=== PATIENT | male | born 1975 | race African-American/Black ===

== ENCOUNTER 2017-01-05 10:03 | Emergency (ER) | payer MEDICAID ==
[~2017-01-05] VITALS: Ht 176.5 cm; Wt 75.0 kg
[~2017-01-05 10:03] MED LIST: TRAM50TA3 PO
[2017-01-05] MEDS ORDERED: ONDANSETRON HCL 4MG/2ML VIAL IV STA (10:30)
[2017-01-05] MEDS ORDERED: SODIUM CHLORIDE 0.9% 1,000 ML IV ONE (10:30)
[2017-01-05 10:58] LABS: BASOPHILS % 1.1 % (0.0-2.0); DIFFERENTIAL COMMENT 0; EOSINOPHILS % 0.1 % (0.0-5.0); HEMATOCRIT. 40.9 % (42.0-52.0); HEMOGLOBIN. 13.3 g/dL (14.0-18.0); LYMPHOCYTES % 15.1 % (20.0-50.0); MEAN CORPUSCULAR HEMOGLOBIN 30.5 pg (28.0-32.0); MEAN CORPUSCULAR HGB CONC 32.6 g/dL (31.0-37.0); MEAN CORPUSCULAR VOLUME 93.4 fL (80.0-94.0); MEAN PLATELET VOLUME 8.9 fl (7.4-10.4); MONOCYTES % 7.3 % (2.0-8.0); NEUTROPHILS % 76.4 % (40.0-76.0); PLATELET 223 x1000/uL (130-400); RED BLOOD CELL COUNT 4.38 mill/uL (4.7-6.1); WHITE BLOOD COUNT 5.1 x1000/uL (4.5-11.0)
[2017-01-05 11:05] LABS: CHLORIDE 104 mEq/L (98-107); INDEX HEMOLYSI 1 (1-3); INDEX ICTERIC 1 (1-4); INDEX LIPEMIC 1 (1-3)
[2017-01-05 11:07] LABS: INR 1.1; PARTIAL THROMBOPLASTIN TIME 26.1 sec (24.0-34.0); PROTHROMBIN TIME 11.5 sec
[2017-01-05 11:11] LABS: CLARITY URINE CLEAR (CLEAR); COLOR URINE YELLOW (YELLOW); GLUCOSE URINE NEGATIVE (NEGATIVE); KETONES URINE 1+ (NEGATIVE); LEUKOCYTE ESTERASE URINE NEGATIVE (NEGATIVE); NITRITE URINE NEGATIVE (NEGATIVE); OCCULT BLOOD URINE NEGATIVE (NEGATIVE); PH URINE 7.5 (4.5-8.0); PROTEIN URINE TRACE (NEGATIVE)
[2017-01-05 11:16] LABS: ALANINE AMINOTRANSFERASE 29 IU/L (13-61); ALBUMIN 3.7 g/dL (3.4-5.0); ANION GAP 10; CARBON DIOXIDE 32 mEq/L (21-32); ETHANOL BLOOD < 10 mg/dL; LIPASE 178 IU/L (73-393); UREA NITROGEN BLOOD 11 mg/dL (7-21); eGFR > 60 mL/min (>60)
[2017-01-05 11:27] LABS: MUCUS URINE 2+ /lpf (NONE/TRACE); SQUAMOUS EPITHELIAL CELL URINE RARE /lpf (RARE/1+)
[2017-01-05 11:31] LABS: RBC URINE NONE SEEN /hpf (0-2); WBC URINE 0-2 /hpf (0-2)
[2017-01-05 11:32] LABS: BACTERIA URINE TRACE
[2017-01-05 11:34] LABS: *AMPHETAMINES SCREEN URINE NEGATIVE (NEGATIVE); *BARBITURATES SCREEN URINE NEGATIVE (NEGATIVE); *BENZODIAZEPINES SCREEN URINE NEGATIVE (NEGATIVE); *COCAINE SCREEN URINE NEGATIVE (NEGATIVE); CANNABINOID URINE SCREEN PRESUMTIVE POSITIVE (NEGATIVE); ECSTASY MDMA SCREEN URINE NEGATIVE (NEGATIVE); METHADONE URINE SCREEN NEGATIVE (NEGATIVE); OPIATES URINE SCREEN NEGATIVE (NEGATIVE); PHENCYCLIDINE URINE SCREEN PRESUMTIVE POSITIVE (NEGATIVE)
[2017-01-05 12:31] VITALS: BP 153/100
[2017-01-05] MEDS ORDERED: METOCLOPRAMIDE HCL 10MG/2ML VIAL IV ONE (12:45)
== END 2017-01-05 13:20 | disposition home or self-care (01) ==
LOC: ER 10:50
DX: T50.991A Poisoning by other drugs, medicaments and biological substances, accidental (unintentional), initial encounter (principal); F12.120 Cannabis abuse with intoxication, uncomplicated; R11.2 Nausea with vomiting, unspecified; F17.200 Nicotine dependence, unspecified, uncomplicated; F12.10 Cannabis abuse, uncomplicated; F15.10 Other stimulant abuse, uncomplicated; Y93.89 Activity, other specified; Y99.8 Other external cause status; Y92.89 Other specified places as the place of occurrence of the external cause
CPT/HCPCS: 36415; 80053; 80305; 81001; 83690; 85025; 85610; 85730; 93005; 96361; 96374; 96375; 99285; G0482; J2405; J2765; J7030

== ENCOUNTER 2020-07-24 14:15 | Emergency (ER) | payer MEDICAID ==
[~2020-07-24] VITALS: Ht 172.7 cm; Wt 75.0 kg
[2020-07-24] MEDS ORDERED: TETANUS, DIPHTHERIA, PERTUSSIS VAC/PF 0.5ML (>7YR OLD) IM ONE (14:45)
[2020-07-24] MEDS ORDERED: SODIUM CHLORIDE 0.9% 1,000 ML IV ONE (14:45)
[2020-07-24 15:20] LABS: BASOPHILS % 1.2 % (0.0-2.0); HEMATOCRIT. 39.8 % (42.0-52.0); LYMPHOCYTES % 18.2 % (20.0-50.0); MEAN CORPUSCULAR HEMOGLOBIN 29.8 pg (28.0-32.0); MEAN CORPUSCULAR VOLUME 91.1 fL (80.0-94.0); MEAN PLATELET VOLUME 9.5 fl (7.4-10.4); MONOCYTES % 6.1 % (2.0-8.0); NEUTROPHILS % 72.5 % (40.0-76.0); PLATELET 188 x1000/uL (130-400); RED BLOOD CELL COUNT 4.36 mill/uL (4.7-6.1); RED CELL DISTRIBUTION WIDTH 13.2 % (11.6-14.6)
[2020-07-24 15:29] LABS: CHLORIDE 110 mEq/L (98-107)
[2020-07-24 15:31] LABS: PROTHROMBIN TIME 10.9 sec (9.6-11.0)
[2020-07-24] MEDS ORDERED: IOHEXOL-300 100 ML BOTTLE ONE (16:04)
[2020-07-24] MEDS ORDERED: ACETAMINOPHEN 325MG TABLET PO ONE (18:30)
[2020-07-24] MEDS ORDERED: IBUPROFEN 600MG TABLET PO ONE (18:45)
[2020-07-24 19:30] VITALS: BP 132/86
[2020-07-24 19:46] LABS: CLARITY URINE CLEAR (CLEAR); COLOR URINE YELLOW (YELLOW); KETONES URINE NEGATIVE (NEGATIVE); LEUKOCYTE ESTERASE URINE NEGATIVE (NEGATIVE); NITRITE URINE NEGATIVE (NEGATIVE); OCCULT BLOOD URINE NEGATIVE (NEGATIVE); PROTEIN URINE NEGATIVE (NEGATIVE); SPECIFIC GRAVITY URINE 1.041 (1.005-1.030)
== END 2020-07-24 19:36 | disposition home or self-care (01) ==
LOC: ER 14:31
DX: S62.367A Nondisplaced fracture of neck of fifth metacarpal bone, left hand, initial encounter for closed fracture (principal); S00.212A Abrasion of left eyelid and periocular area, initial encounter; S60.512A Abrasion of left hand, initial encounter; M79.10 Myalgia, unspecified site; F19.129 Other psychoactive substance abuse with intoxication, unspecified; F10.10 Alcohol abuse, uncomplicated; F12.10 Cannabis abuse, uncomplicated; F15.10 Other stimulant abuse, uncomplicated; Y90.9 Presence of alcohol in blood, level not specified; V23.4XXA Motorcycle driver injured in collision with car, pick-up truck or van in traffic accident, initial encounter; Y93.89 Activity, other specified; Y92.488 Other paved roadways as the place of occurrence of the external cause
CPT/HCPCS: 29125; 36415; 70450; 71045; 71260; 72125; 72170; 73110; 73130; 73590; 73610; 73630; 74177; 80053; 81003; 83690; 85025; 85610; 85730; 86850; 86900; 86901; 90471; 90715; 93005; 96360; 96361; 99285; J7030; Q9967

== ENCOUNTER 2021-06-01 20:42 | Inpatient (IN) | payer OTHER ==
[~2021-06-01] VITALS: Ht 175.3 cm; Wt 64.0 kg
[2021-06-01] MEDS ORDERED: PANTOPRAZOLE SODIUM 40 MG/VIAL IV STA (20:59)
[2021-06-01] MEDS ORDERED: OCTREOTIDE ACETATE 50 MCG/ML 1ML IV STA (20:59)
[2021-06-01] MEDS ORDERED: OCTREOTIDE 1,000 MCG in SODIUM CHLORIDE 0.9% 100 ML IV STA (20:59)
[2021-06-01] MEDS ORDERED: SODIUM CHLORIDE 0.9% 1,000 ML IV ONE (21:00)
[2021-06-01 21:43] LABS: BASOPHILS % 0.4 % (0.0-2.0); EOSINOPHILS % 0.3 % (0.0-5.0); HEMATOCRIT. 40.2 % (42.0-52.0); HEMOGLOBIN. 13.4 g/dL (14.0-18.0); LYMPHOCYTES % 8.5 % (20.0-50.0); MEAN CORPUSCULAR HEMOGLOBIN 29.5 pg (28.0-32.0); MEAN CORPUSCULAR VOLUME 88.8 fL (80.0-94.0); MEAN PLATELET VOLUME 9.1 fl (7.4-10.4); MONOCYTES % 4.7 % (2.0-8.0); NEUTROPHILS % 86.1 % (40.0-76.0); PLATELET 321 x1000/uL (130-400); RED BLOOD CELL COUNT 4.53 mill/uL (4.7-6.1); RED CELL DISTRIBUTION WIDTH 13.8 % (11.6-14.6)
[2021-06-01 21:46] LABS: CHLORIDE 101 mEq/L (98-107)
[2021-06-01 21:50] LABS: INR 1.1; PARTIAL THROMBOPLASTIN TIME 22.8 sec (23.4-31.0); PROTHROMBIN TIME 11.6 sec (9.6-11.0)
[2021-06-01] MEDS ORDERED: SODIUM CHLORIDE 0.9% 1,000 ML IV NR (23:30)
[2021-06-01] MEDS ORDERED: IOHEXOL-300 100 ML BOTTLE ONE (23:36)
[2021-06-02 03:36] LABS: CLARITY URINE CLEAR (CLEAR); COLOR URINE YELLOW (YELLOW); KETONES URINE TRACE (NEGATIVE); LEUKOCYTE ESTERASE URINE NEGATIVE (NEGATIVE); NITRITE URINE NEGATIVE (NEGATIVE); OCCULT BLOOD URINE NEGATIVE (NEGATIVE); PROTEIN URINE NEGATIVE (NEGATIVE); SPECIFIC GRAVITY URINE 1.051 (1.005-1.030)
[2021-06-02 08:15] VITALS: BP 118/85
[2021-06-02 12:29] VITALS: BP 112/78
[2021-06-02] MEDS ORDERED: ONDANSETRON HCL 4MG/2ML INJ IV PRN (13:00)
[2021-06-02] MEDS ORDERED: ACETAMINOPHEN 325MG TABLET PO PRN (13:00)
[2021-06-02 14:56] LABS: *AMPHETAMINES SCREEN URINE PRESUMTIVE POSITIVE (NEGATIVE); *BARBITURATES SCREEN URINE NEGATIVE (NEGATIVE); *BENZODIAZEPINES SCREEN URINE NEGATIVE (NEGATIVE); CANNABINOID URINE SCREEN PRESUMTIVE POSITIVE (NEGATIVE); METHADONE URINE SCREEN NEGATIVE (NEGATIVE); OPIATES URINE SCREEN NEGATIVE (NEGATIVE); PHENCYCLIDINE URINE SCREEN PRESUMTIVE POSITIVE (NEGATIVE)
[2021-06-02 14:57] LABS: *COCAINE SCREEN URINE NEGATIVE (NEGATIVE)
[2021-06-02 16:00] VITALS: BP 115/71
[2021-06-02] MEDS ORDERED: POTASSIUM CHLORIDE 20MEQ TABLET SR PO NR (16:00)
[2021-06-02] MEDS ORDERED: RISP3TAB62 PO (16:26)
[2021-06-02 20:00] VITALS: BP 100/60
[2021-06-02] MEDS ORDERED: RISPERIDONE 1MG TABLET PO SCH (21:00)
[2021-06-03] VITALS: BP 100/45
[2021-06-03 04:00] VITALS: BP 92/53
[2021-06-03 08:22] VITALS: BP 107/65
[2021-06-03] MEDS ORDERED: PANTOPRAZOLE SODIUM 40 MG/VIAL IV SCH (09:00)
[2021-06-03 10:16] LABS: CHLORIDE 105 mEq/L (98-107)
[2021-06-03 10:19] LABS: BASOPHILS % 1.1 % (0.0-2.0); EOSINOPHILS % 2.5 % (0.0-5.0); HEMATOCRIT. 33.2 % (42.0-52.0); LYMPHOCYTES % 29.2 % (20.0-50.0); MEAN CORPUSCULAR HEMOGLOBIN 29.9 pg (28.0-32.0); MEAN CORPUSCULAR VOLUME 90.2 fL (80.0-94.0); MEAN PLATELET VOLUME 9.1 fl (7.4-10.4); MONOCYTES % 5.9 % (2.0-8.0); NEUTROPHILS % 61.3 % (40.0-76.0); PLATELET 232 x1000/uL (130-400); RED BLOOD CELL COUNT 3.68 mill/uL (4.7-6.1); RED CELL DISTRIBUTION WIDTH 13.3 % (11.6-14.6)
[2021-06-03 12:03] VITALS: BP 107/65
[2021-06-03 12:09] VITALS: BP 110/68
== END 2021-06-03 17:30 | disposition home or self-care (01) | DRG 720 ==
LOC: ER 20:42 → MICUSO 06-02 00:38 → 6WST 06-02 07:35
PROVIDERS: ADMIT Internal Medicine; ATTEND Internal Medicine
DX: A41.9 Sepsis, unspecified organism (principal); E87.2 Acidosis; E44.1 Mild protein-calorie malnutrition; K56.1 Intussusception; I10 Essential (primary) hypertension; F17.210 Nicotine dependence, cigarettes, uncomplicated; F12.10 Cannabis abuse, uncomplicated; F16.10 Hallucinogen abuse, uncomplicated; E87.6 Hypokalemia; K52.9 Noninfective gastroenteritis and colitis, unspecified; Z79.899 Other long term (current) drug therapy; Z68.20 Body mass index [BMI] 20.0-20.9, adult
CPT/HCPCS: 36415; 74177; 80048; 80076; 80305; 81003; 83605; 84484; 85025; 86850; 86900; 93005; 99285; C9113; J2354; J7030; J7050; Q9967

== ENCOUNTER 2021-11-02 10:03 | Emergency (ER) | payer OTHER ==
[~2021-11-02] VITALS: Ht 177.8 cm; Wt 70.0 kg
[~2021-11-02 10:03] MED LIST changes: +RISP3TAB62 PO
[2021-11-02] MEDS ORDERED: LIDOCAINE HCL/EPINEPHRINE 1%-EPI 1:100,000 20 ML VIAL INFIL ONE (10:30)
[2021-11-02] MEDS ORDERED: BACITRACIN ZINC OINT UDPKT TOP ONE (10:30)
[2021-11-02] MEDS ORDERED: IBUPROFEN 600MG TABLET PO ONE (10:30)
[2021-11-02] MEDS ORDERED: LIDOCAINE HCL/EPINEPHRINE 1%-EPI 1:100,000 10 ML VIAL INFIL NR (10:45)
[2021-11-02] MEDS ORDERED: CEPH500C2 MT (11:14)
[2021-11-02] MEDS ORDERED: IBUP-2029 MT (11:14)
[2021-11-02 11:25] VITALS: BP 136/80
== END 2021-11-02 11:29 | disposition home or self-care (01) ==
LOC: ER 10:03
DX: L02.211 Cutaneous abscess of abdominal wall (principal)
CPT/HCPCS: 10060; 99283; J3490